=== PATIENT | female | born 2000 | race Asian ===

== ENCOUNTER 2023-08-29 07:24 | Emergency (ER) | payer BC, OTHER ==
--- NOTE | 2023-08-29 07:34 | ED Physician Documentation ---
PD HPI ABD PAIN - Stated complaint Stated Complaint: ABD PX,NAUSEA - Chief complaint Chief Complaint: Abd Pain - History obtained from History obtained from: Patient - History of Present Illness Timing - onset: How many days ago (2) Timing - duration: Days (2) Timing - details: Abrupt onset, Still present, Waxing and waning (was improved with IV meds at [facility] yesterday, but not improved with PO meds last night and worse again this morning without improvement by PO oxycodone.) Quality: Cramping, Aching, Pain Location: LLQ Radiation: Left flank Associated symptoms: Nausea, Vomiting, Hematuria, Loss of appetite. No: Fever, Diarrhea, Dysuria Similar symptoms before: Diagnosis (kidney stones) Review of Systems Constitutional: denies: Fever, Chills Nose: denies: Rhinorrhea / runny nose, Congestion Throat: denies: Sore throat Respiratory: denies: Cough PD PAST MEDICAL HISTORY - Past Medical History Cardiovascular: None Respiratory: None : Kidney stones - Past Surgical History Past Surgical History: No - Present Medications Home Medications: Ambulatory Orders Medication Instructions Recorded Confirmed Meloxicam [Mobic] 7.5 mg PO BID 10 Days #20 tablet 08/29/23 Ondansetron Odt [Zofran] 4 mg TL Q6H PRN #10 tablet 08/29/23 - Allergies Allergies/Adverse Reactions: Allergies Allergy/AdvReac Type Severity Reaction Status Date / Time No Known Drug Allergies Allergy Verified 08/29/23 07:32 - Social History Does the pt smoke?: No Smoking Status: Never smoker Does the pt drink ETOH?: No PD ED PE NORMAL - Vitals Vital signs reviewed: Yes - General General: Alert and oriented X 3, Well developed/nourished - Derm Derm: Normal color, Warm and dry - Extremities Extremities: No edema, No calf tenderness / cord, Other (appears in significant pain flank and abd.) - Neuro Neuro: No motor deficit, No sensory deficit Results - Vitals Vitals: Oxygen O2 Source Room air - Labs Labs: Laboratory Tests 08/29/23 08/29/23 08/29/23 07:35 08:00 08:00 WBC 10.5 RBC 5.02 Hgb 11.1 L Hct 38.0 MCV 75.7 L MCH 22.1 L MCHC 29.2 L RDW 14.8 Plt Count 361 MPV 10.2 Neut # (Auto) 8.5 H Lymph # (Auto) 1.4 L [place] # (Auto) 0.5 Eos # (Auto) 0.1 Baso # (Auto) 0.1 Absolute Nucleated RBC 0.00 Nucleated RBC % 0.0 Sodium 139 Potassium 3.5 Chloride 105 Carbon Dioxide 23 Anion Gap 11.0 BUN 12 Creatinine 0.8 Estimated GFR (MDRD) 88 L Glucose 150 H Calcium 9.5 Total Bilirubin 0.3 AST 15 ALT 12 Alkaline Phosphatase 83 Total Protein 7.6 Albumin 4.4 Globulin 3.2 Albumin/Globulin Ratio 1.4 Lipase 17 Urine Color YELLOW Urine Clarity CLEAR Urine pH 6.0 Ur Specific [place] [employer] 1.025 Urine Protein NEGATIVE Urine Glucose (UA) NEGATIVE Urine Ketones TRACE Urine Occult Blood MODERATE H Urine Nitrite NEGATIVE Urine Bilirubin NEGATIVE Urine Urobilinogen 0.2 (NORMAL) Ur Leukocyte Esterase NEGATIVE Urine RBC 11-25 H Urine WBC 0-3 Ur Squamous Epith Cells FEW Squamous Urine Bacteria Few Ur Microscopic Review INDICATED Urine Culture Comments NOT INDICATED Urine HCG, Qual NEGATIVE PD Medical Decision Making - ED course Complexity details: reviewed results (pt with labs and CT abd), re-evaluated patient (she is feeling reasonably improved pain level with worse pain today. ), considered differential (states history of kidney stones, seen yestserdauy at [facility] and Dx with 2-3 mm stone right ureter. Rx painmeds. 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 Kidney function is good. At this point I would suggest continuing with the tamsulosin. I would add a regular anti-inflammatory such as ibuprofen or naproxen. I did write for a longer acting 1 called meloxicam which would be just twice a day over the next several days to week. Add Tylenol 500 to 650 mg 4 times daily regularly for pain to try to reduce the occurrence. Add your previous prescription oxycodone if needed for worse pain. I also added ondansetron if needed for nausea. Stay well-hydrated. The stone will tend to irritate the ureter and cause spasms of it as it moves down the ureter. Usually this is not too significant of a pain with the anti- inflammatories and the tamsulosin on board but sometimes it hurts more like it did this morning. Hopefully it will not hurt like this subsequently with regular use of medication. A stone of the 2 or 3 mm size typically will pass within a couple of days or so. Return to the ER if needed. Forms: PCP List Discharge Date/Time: 08/29/23 11:07
[2023-08-29 07:40] VITALS: O2SAT 100
[2023-08-29 08:05] LABS: BASOPHILS # (AUTO) 0.1 10^3/uL (0.0-0.1); BASOPHILS % (AUTO) 0.6 %; EOSINOPHILS # (AUTO) 0.1 10^3/uL (0.0-0.7); EOSINOPHILS % (AUTO) 0.8 %; HGB - HEMOGLOBIN 11.1 g/dL (12.0-16.0); LYMPHOCYTES # (AUTO) 1.4 10^3/uL (1.5-3.5); LYMPHOCYTES % (AUTO) 12.8 %; MEAN CORPUSCULAR HEMOGLOBIN 22.1 pg (27.0-31.0); MEAN CORPUSCULAR HGB CONC 29.2 g/dL (32.0-36.0); MEAN CORPUSCULAR VOLUME 75.7 fL (81.0-99.0); MEAN PLATELET VOLUME 10.2 fL (7.9-10.8); MONOCYTES # (AUTO) 0.5 10^3/uL (0.0-1.0); MONOCYTES % (AUTO) 4.5 %; NEUTROPHILS # (AUTO) 8.5 10^3/uL (1.5-6.6); NEUTROPHILS % (AUTO) 80.9 %; PLT - PLATELET COUNT 361 10^3/uL (130-450); RED BLOOD COUNT 5.02 10^6/uL (4.20-5.40); RED CELL DISTRIBUTION WIDTH 14.8 % (12.0-15.0); WHITE BLOOD COUNT 10.5 x10^3/uL (4.8-10.8)
[2023-08-29 08:08] LABS: BILIRUBIN,URINE NEGATIVE (NEGATIVE); GLUCOSE, URINE (UA) NEGATIVE (NEGATIVE); KETONES,URINE (UA) TRACE mg/dL (NEGATIVE); LEUKOCYTE ESTERASE, URINE NEGATIVE (NEGATIVE); NITRITE,URINE NEGATIVE (NEGATIVE); OCCULT BLOOD,URINE MODERATE (NEGATIVE); PROTEIN,URINE NEGATIVE (NEGATIVE); UROBILINOGEN,URINE 0.2 (NORMAL) E.U./dL (NORMAL)
[2023-08-29 08:11] LABS: CLARITY,URINE CLEAR (CLEAR); HCG UR QUAL NEGATIVE
[2023-08-29] MEDS: SODIUM CHLORIDE 0.9% 1,000 ML IV STA (08:11)
[2023-08-29] MEDS: KETOROLAC 15 MG/ML VIAL IVP STA (08:13)
[2023-08-29] MEDS: ONDANSETRON 4 MG/2 ML VIAL IVP STA (08:14)
[2023-08-29] MEDS: HYDROmorphone 1 MG/ML CARPUJECT IVP STA (08:15)
[2023-08-29 08:19] LABS: ALBUMIN 4.4 g/dL (3.2-5.5); ALBUMIN/GLOBULIN RATIO 1.4 (1.0-2.2); BILIRUBIN,TOTAL 0.3 mg/dL (0.2-1.0); CALCIUM 9.5 mg/dL (8.5-10.3); CREATININE 0.8 mg/dL (0.6-1.3); POTASSIUM 3.5 mmol/L (3.5-4.5); TOTAL PROTEIN 7.6 g/dL (6.4-8.9)
[2023-08-29 08:30] LABS: WBC,URINE 0-3 /HPF (0-5)
[2023-08-29 08:31] LABS: BACTERIA,URINE Few /HPF (None Seen); SQUAMOUS EPITHELIAL CELL,UR FEW Squamous (<= Few)
[2023-08-29 10:40] VITALS: BP 127/78
== END 2023-08-29 11:07 | disposition home or self-care (01) ==
LOC: ED 07:24
DX: N20.1 Calculus of ureter (principal); Z87.442 Personal history of urinary calculi
CPT/HCPCS: 36415; 80053; 81001; 81025; 83690; 85025; 96374; 96375; 99283; J1170; 81003; 87086